=== PATIENT | male | born 1930 | race Native Hawaiian/Other Pacific Islander ===

== ENCOUNTER → 2016-08-27 01:49 | Outpatient (CLI) | payer OTHER ==
[~2016-08-27 01:49] MED LIST: MAGNESIUM400 MG OR; OMEPRAZOLE20 M2 OR; ONDA4TAB3 PO
== END | disposition short-term general hospital (02) ==
LOC: AMB 01:49
DX: R11.2 Nausea with vomiting, unspecified (principal); R25.2 Cramp and spasm
CPT/HCPCS: A0425; A0427

== ENCOUNTER 2016-08-27 02:10 | Emergency (ER) | payer OTHER ==
[~2016-08-27] VITALS: Ht 182.9 cm; Wt 83.9 kg
[2016-08-27 02:42] LABS: PLATELET COUNT 176 K/uL (142-355)
[2016-08-27 02:52] LABS: POTASSIUM 3.9 mmol/L (3.6-5.2); SODIUM 135 mmol/L (136-145)
[2016-08-27] MEDS ORDERED: ONDA4TAB3 PO (04:17)
[2016-08-27] MEDS ORDERED: MAGNESIUM400 MG OR (04:17)
[2016-08-27] MEDS ORDERED: OMEPRAZOLE20 M2 OR (04:17)
[2016-08-27 04:29] VITALS: BP 110/69; TEMP 99.2
== END 2016-08-27 04:25 | disposition home or self-care (01) ==
LOC: ED 02:10
DX: K52.89 Other specified noninfective gastroenteritis and colitis (principal); R11.2 Nausea with vomiting, unspecified; K85.90 Acute pancreatitis without necrosis or infection, unspecified; E83.42 Hypomagnesemia; R25.2 Cramp and spasm
CPT/HCPCS: 36415; 80053; 82150; 83690; 83735; 85027; 96360; 96361; 99284

== ENCOUNTER 2018-09-12 12:11 | Outpatient (CLI) | payer OTHER | END 2018-09-12 19:32 | disposition home or self-care (01) | LOC: LAB 12:11 | DX: R19.7 Diarrhea, unspecified (principal) | CPT/HCPCS: 82272; 83630; 87015; 87045; 87324; 87328; 87329; 87449; 87899 ==

== ENCOUNTER 2020-03-21 10:44 | Emergency (ER) | payer OTHER ==
[~2020-03-21] VITALS: Ht 185.4 cm; Wt 72.6 kg
[2020-03-21 11:49] LABS: PLATELET COUNT 200 K/uL (142-355)
[2020-03-21 11:52] LABS: POTASSIUM 4.6 mmol/L (3.6-5.2)
[2020-03-21 12:03] VITALS: BP 131/86; TEMP 98
[2020-03-21 12:03] LABS: PARTIAL THROMBOPLASTIN TIME 25.5 SECONDS (24.5-33.6)
== END 2020-03-21 12:03 | disposition home or self-care (01) ==
LOC: ED 10:44
PROVIDERS: Hospitalist
PROC: 0HQ0XZZ Repair Scalp Skin, External Approach (ICD-10-PCS; principal; 2020-03-21)
DX: S01.01XA Laceration without foreign body of scalp, initial encounter (principal); W01.198A Fall on same level from slipping, tripping and stumbling with subsequent striking against other object, initial encounter; Y92.89 Other specified places as the place of occurrence of the external cause
CPT/HCPCS: 36415; 80048; 80320; 85027; 85610; 85730; 96365; 96375; 99284; J0690; J1885; J7040

== ENCOUNTER 2020-03-30 10:12 | Emergency (ER) | payer OTHER ==
[~2020-03-30] VITALS: Ht 185.4 cm; Wt 81.6 kg
[2020-03-30 10:30] VITALS: TEMP 98.7
[2020-03-30 11:48] VITALS: BP 151/67
== END 2020-03-30 11:50 | disposition home or self-care (01) ==
LOC: ED 10:12
DX: Z48.02 Encounter for removal of sutures (principal)